=== PATIENT | male | born 1970 | race Hispanic/Latino ===

== ENCOUNTER 2017-06-17 00:41 | Inpatient (IN) | payer SELFPAY ==
[2017-06-17] VITALS (8 sets, daily range): BP systolic 142–193; BP diastolic 87–125
[~2017-06-17] VITALS: Ht 165.1 cm; Wt 112.0 kg
[~2017-06-17 00:41] MED LIST: AMLO5TAB4 PO; GLIP5TAB11 PO; LISI40TA4 PO; METF10004 PO
[2017-06-17 01:09] LABS: APPEARANCE,URINE Clear (CLEAR); BILIRUBIN,URINE Negative (NEGATIVE); COLOR,URINE Yellow (YELLOW); GLUCOSE, URINE (UA) Negative (NEGATIVE); KETONES,URINE Negative (NEGATIVE); LEUKOCYTE ESTERASE ,URINE Negative (NEGATIVE); NITRATE,URINE Negative (NEGATIVE); OCCULT BLOOD,URINE Negative (NEGATIVE); PROTEIN,URINE Negative (NEGATIVE); UROBILINOGEN,URINE 0.2 mg/dL (0.2-1.0)
[2017-06-17] MEDS ORDERED: METOPROLOL TARTRATE 1 MG/ML 5ML VIAL IV ONE (01:11)
[2017-06-17 01:17] LABS: BASOPHILS % (AUTO) 0.8 % (0.0-5.0); EOSINOPHILS % (AUTO) 2.2 % (0.0-8.0); HEMATOCRIT 39.2 % (42-54); LYMPHOCYTES % (AUTO) 37.1 % (21.0-51.0); MEAN CORPUSCULAR HEMOGLOBIN 30.7 pg (27.0-33.0); MEAN CORPUSCULAR HGB CONC 35.6 g/dL (32.0-36.0); MEAN CORPUSCULAR VOLUME 86.4 fL (79-99); MONOCYTES % (AUTO) 6.9 % (3.0-13.0); PLATELET COUNT (AUTO) 201 K/uL (130-400); RED BLOOD CELL COUNT(AUTO) 4.53 MIL/uL (4.50-6.20); RED CELL DISTRIBUTION WIDTH 13.7 % (11.0-15.5); WHITE BLOOD COUNT (AUTO) 5.5 K/uL (4.8-10.8)
[2017-06-17 01:18] LABS: AMPHET/METH SCREEN,URINE NEGATIVE (NEGATIVE); BARBITURATE SCREEN, URINE NEGATIVE (NEGATIVE); BENZODIAZEPINES SCREEN,URINE NEGATIVE (NEGATIVE); CANNABINOID SCREEN,URINE NEGATIVE (NEGATIVE); COCAINE SCREEN,URINE NEGATIVE (NEGATIVE); OPIATE SCREEN,URINE NEGATIVE (NEGATIVE); PHENCYCLIDINE SCREEN,URINE NEGATIVE (NEGATIVE)
[2017-06-17 01:32] LABS: INR 0.98 (0.85-1.15); PARTIAL THROMBOPLASTIN TIME 27.3 SEC (26.3-35.5); PROTHROMBIN TIME 10.3 SEC (9.6-11.6)
[2017-06-17 01:54] LABS: CREATININE 1.2 mg/dL (0.5-1.5); POTASSIUM 4.3 mmol/L (3.5-5.1)
[2017-06-17 02:07] LABS: ALBUMIN 3.7 g/dL (3.5-5.0); BILIRUBIN,TOTAL 0.4 mg/dL (0.2-1.0); CREATINE KINASE MB 1.4 ng/mL (0.5-3.6)
[2017-06-17] MEDS ORDERED: THIAMINE HCL 100 MG/ML 2ML VIAL ONE (02:25)
[2017-06-17] MEDS ORDERED: SODIUM CHLORIDE 0.9% 1000ML 1,000 ML IV ONE (02:25)
[2017-06-17] MEDS ORDERED: KETOROLAC TROMETHAMINE 30MG/ML ONE (02:25)
[2017-06-17] MEDS ORDERED: FOLIC ACID 5 MG/ML 10 ML VIAL ONE (02:27)
[2017-06-17] MEDS ORDERED: ONDANSETRON HCL MDV 20ML 2 MG/ML VIAL ONE (02:55)
[2017-06-17] MEDS ORDERED: HYDRALAZINE HCL 20 MG/ML VIAL ONE (02:56)
[2017-06-17] MEDS ORDERED: MORPHINE SULFATE 4 MG/1ML SYG ONE (02:57)
[2017-06-17] MEDS ORDERED: DEXTROSE 50%-WATER 50 ML DISP.SYRIN IV PRN (04:45)
[2017-06-17] MEDS ORDERED: GLUCAGON 1MG KIT 1 MG ML IM PRN (04:45)
[2017-06-17] MEDS ORDERED: METOPROLOL TARTRATE 1 MG/ML 5ML VIAL IV PRN (04:45)
[2017-06-17] MEDS ORDERED: MORPHINE SULFATE 2 MG/ML 1ML SYG IVP PRN (04:45)
[2017-06-17] MEDS: INSULIN R PO SS1 SQ SCH ×3 (06:13→16:30)
[2017-06-17 06:47] LABS: HEMATOCRIT 36.9 % (42-54); MEAN CORPUSCULAR HEMOGLOBIN 30.6 pg (27.0-33.0); MEAN CORPUSCULAR HGB CONC 35.7 g/dL (32.0-36.0); MEAN CORPUSCULAR VOLUME 85.8 fL (79-99); PLATELET COUNT (AUTO) 192 K/uL (130-400); WHITE BLOOD COUNT (AUTO) 7.4 K/uL (4.8-10.8)
[2017-06-17 07:05] LABS: CREATININE 1.2 mg/dL (0.5-1.5); POTASSIUM 4.6 mmol/L (3.5-5.1)
[2017-06-17] MEDS: HYDRALAZINE HCL 20 MG/ML VIAL IV PRN ×3 (07:50→21:58)
[2017-06-17] MEDS: MORPHINE SULFATE 4 MG/1ML SYG IVP PRN ×2 (07:50→12:27)
[2017-06-17] MEDS: BANANA BAG IV SCH ×4 (07:52)
[2017-06-17] MEDS: MORPHINE SULFATE 4 MG/1ML SYG IV PRN (18:54)
[2017-06-17] MEDS ORDERED: CLONIDINE 0.2 MG/ 24 HR PATCH TD ONE (19:00)
[2017-06-17] MEDS: 1/2 NORMAL SALINE 1,000 ML IV SCH (21:08)
[2017-06-17] MEDS ORDERED: LISINOPRIL 20 MG TABLET ONE (21:13)
[2017-06-17] MEDS ORDERED: LORAZEPAM 2 MG/ML 1 ML VIAL IVP PRN (22:15)
[2017-06-17] MEDS ORDERED: CHLORDIAZEPOXIDE HCL 25 MG CAP PO ONE (22:15)
[2017-06-17] MEDS ORDERED: CHLORDIAZEPOXIDE HCL 25 MG CAP ONE (22:20)
[2017-06-17] MEDS ORDERED: LORAZEPAM 2 MG/ML 1 ML VIAL ONE (22:20)
[2017-06-18] MEDS: MORPHINE SULFATE 4 MG/1ML SYG IV PRN ×2 (02:32→10:57)
[2017-06-18] MEDS: INSULIN HUMULIN R 100 UNIT/ML 3ML SQ SCH ×4 (05:56→16:46)
[2017-06-18 08:00] VITALS: BP 172/105
[2017-06-18] MEDS: CHLORDIAZEPOXIDE HCL 25 MG CAP PO SCH ×2 (08:13→21:02)
[2017-06-18] MEDS: LISINOPRIL 20 MG TABLET PO SCH (08:14)
[2017-06-18] MEDS: ONDANSETRON HCL MDV 20ML 2 MG/ML VIAL IVP PRN (11:26)
[2017-06-18] MEDS: HYDRALAZINE HCL 20 MG/ML VIAL IV PRN (11:28)
[2017-06-18 12:00] VITALS: BP 158/104
[2017-06-18 16:00] VITALS: BP 161/81
[2017-06-18] MEDS: BANANA BAG IV SCH ×4 (17:12)
[2017-06-18 19:00] VITALS: BP 150/82
[2017-06-19] VITALS: BP 149/92
[2017-06-19] MEDS: ONDANSETRON HCL MDV 20ML 2 MG/ML VIAL IVP PRN ×2 (00:04→13:31)
[2017-06-19] MEDS: 1/2 NORMAL SALINE 1,000 ML IV SCH ×2 (00:05→22:12)
[2017-06-19] MEDS: MORPHINE SULFATE 4 MG/1ML SYG IV PRN ×2 (01:47→13:31)
[2017-06-19 04:00] VITALS: BP 141/99
[2017-06-19] MEDS: INSULIN HUMULIN R 100 UNIT/ML 3ML SQ SCH ×2 (06:27→21:00)
[2017-06-19 08:00] VITALS: BP 143/98
[2017-06-19] MEDS: LISINOPRIL 20 MG TABLET PO SCH (08:54)
[2017-06-19] MEDS: CHLORDIAZEPOXIDE HCL 25 MG CAP PO SCH (08:54)
[2017-06-19] MEDS: ENOXAPARIN SODIUM 30 MG/0.3 ML SQ SCH (08:58)
[2017-06-19] MEDS ORDERED: OMEP40CA37 PO (09:01)
[2017-06-19 12:00] VITALS: BP 133/90
[2017-06-19 16:00] VITALS: BP 140/95
[2017-06-19 19:48] VITALS: BP 151/92
[2017-06-19] MEDS: FAMOTIDINE/PF 20 MG/2 ML VIAL IV SCH (21:32)
[2017-06-20] VITALS: BP 140/85
[2017-06-20] MEDS ORDERED: BISACODYL 10 MG SUPP.RECT RC ONE (00:36)
[2017-06-20] MEDS: ONDANSETRON HCL MDV 20ML 2 MG/ML VIAL IVP PRN ×3 (00:38→23:11)
[2017-06-20] MEDS: MORPHINE SULFATE 4 MG/1ML SYG IV PRN ×2 (01:44→13:29)
[2017-06-20 04:00] VITALS: BP 132/86
[2017-06-20] MEDS: INSULIN HUMULIN R 100 UNIT/ML 3ML SQ SCH ×3 (07:30→16:09)
[2017-06-20 09:13] VITALS: BP 139/91
[2017-06-20] MEDS: FAMOTIDINE/PF 20 MG/2 ML VIAL IV SCH ×2 (10:19→20:38)
[2017-06-20] MEDS: ENOXAPARIN SODIUM 30 MG/0.3 ML SQ SCH (10:20)
[2017-06-20] MEDS: LISINOPRIL 20 MG TABLET PO SCH (10:20)
[2017-06-20 11:47] VITALS: BP 149/97
[2017-06-20] MEDS ORDERED: DIATR MEGLU/DIATRIZOATE SODIUM 30 ML BOTTLE ONE (13:53)
[2017-06-20 15:35] VITALS: BP 138/96
[2017-06-20] MEDS: 1/2 NORMAL SALINE 1,000 ML IV SCH ×2 (17:17→21:18)
[2017-06-20 19:00] VITALS: BP 147/76
[2017-06-20] MEDS ORDERED: INSULIN HUMULIN R 100 UNIT/ML 3ML SQ SCH (22:30)
[2017-06-21] VITALS (8 sets, daily range): BP systolic 120–174; BP diastolic 80–109
[2017-06-21] MEDS: 1/2 NORMAL SALINE 1,000 ML IV SCH ×3 (05:32→20:42)
[2017-06-21] MEDS: INSULIN HUMULIN R 100 UNIT/ML 3ML SQ SCH ×4 (05:37→23:26)
[2017-06-21 06:33] LABS: HEMATOCRIT 35.3 % (42-54); MEAN CORPUSCULAR HEMOGLOBIN 30.1 pg (27.0-33.0); MEAN CORPUSCULAR HGB CONC 34.7 g/dL (32.0-36.0); MEAN CORPUSCULAR VOLUME 86.7 fL (79-99); PLATELET COUNT (AUTO) 200 K/uL (130-400); RED BLOOD CELL COUNT(AUTO) 4.08 MIL/uL (4.50-6.20); RED CELL DISTRIBUTION WIDTH 13.5 % (11.0-15.5); WHITE BLOOD COUNT (AUTO) 5.3 K/uL (4.8-10.8)
[2017-06-21 06:53] LABS: BILIRUBIN,TOTAL 5.8 mg/dL (0.2-1.0); CREATININE 0.9 mg/dL (0.5-1.5); POTASSIUM 3.9 mmol/L (3.5-5.1); TOTAL PROTEIN, SERUM 7.2 g/dL (6.0-8.3)
[2017-06-21 08:22] LABS: EOSINOPHILS % (MANUAL) 1 % (1-6); LYMPHOCYTES % (MANUAL) 14 % (22-44); MAN.DIFF COMMENT-IMPRESSION MANUAL DIFFERENTIAL; MONOCYTES % (MANUAL) 10 % (2-9); PLATELET MORPHOLOGY COMMENT ADEQUATE; SEGMENTED NEUTROPHILS % 75 % (40-70)
[2017-06-21] MEDS: FAMOTIDINE/PF 20 MG/2 ML VIAL IV SCH ×2 (09:50→19:54)
[2017-06-21] MEDS: LISINOPRIL 20 MG TABLET PO SCH (09:50)
[2017-06-21] MEDS: ENOXAPARIN SODIUM 30 MG/0.3 ML SQ SCH (09:51)
[2017-06-21] MEDS: ZOSYN 3.375GM+NS 50ML 50 ML IV SCH ×2 (12:44→19:54)
[2017-06-21] MEDS: HYDRALAZINE HCL 20 MG/ML VIAL IV PRN (19:54)
[2017-06-22 03:00] VITALS: BP 141/97
[2017-06-22] MEDS: ZOSYN 3.375GM+NS 50ML 50 ML IV SCH ×3 (04:49→20:39)
[2017-06-22] MEDS: 1/2 NORMAL SALINE 1,000 ML IV SCH ×3 (04:49→20:39)
[2017-06-22 05:17] LABS: BILIRUBIN,TOTAL 2.1 mg/dL (0.2-1.0); CREATININE 0.9 mg/dL (0.5-1.5); POTASSIUM 3.4 mmol/L (3.5-5.1); TOTAL PROTEIN, SERUM 7.1 g/dL (6.0-8.3)
[2017-06-22] MEDS: INSULIN HUMULIN R 100 UNIT/ML 3ML SQ SCH ×3 (05:38→18:00)
[2017-06-22 08:00] VITALS: BP 144/97
[2017-06-22] MEDS: ENOXAPARIN SODIUM 30 MG/0.3 ML SQ SCH (10:04)
[2017-06-22] MEDS: FAMOTIDINE/PF 20 MG/2 ML VIAL IV SCH ×2 (10:05→20:39)
[2017-06-22] MEDS: LISINOPRIL 20 MG TABLET PO SCH (10:05)
[2017-06-22] MEDS: HYDRALAZINE HCL 20 MG/ML VIAL IV PRN (10:10)
[2017-06-22] MEDS: MORPHINE SULFATE 4 MG/1ML SYG IV PRN (10:10)
[2017-06-22 12:00] VITALS: BP 159/102
[2017-06-22 16:00] VITALS: BP 144/90
[2017-06-22 19:00] VITALS: BP 158/98
[2017-06-22 23:00] VITALS: BP 138/94
[2017-06-23] VITALS (24 sets, daily range): BP systolic 113–165; BP diastolic 58–105
[2017-06-23] MEDS: ZOSYN 3.375GM+NS 50ML 50 ML IV SCH ×4 (04:35→21:44)
[2017-06-23] MEDS: 1/2 NORMAL SALINE 1,000 ML IV SCH ×3 (04:36→18:52)
[2017-06-23 04:46] LABS: HEMATOCRIT 33.9 % (42-54); MEAN CORPUSCULAR HEMOGLOBIN 30.3 pg (27.0-33.0); MEAN CORPUSCULAR VOLUME 86.5 fL (79-99); NUCLEATED RED BLOOD CELLS 0.1 % (0.0-0.19); PLATELET COUNT (AUTO) 212 K/uL (130-400); RED BLOOD CELL COUNT(AUTO) 3.92 MIL/uL (4.50-6.20); RED CELL DISTRIBUTION WIDTH 13.6 % (11.0-15.5)
[2017-06-23 05:01] LABS: ALBUMIN 3.1 g/dL (3.5-5.0); BILIRUBIN,TOTAL 1.3 mg/dL (0.2-1.0); MAGNESIUM 1.9 mg/dL (1.80-2.40); POTASSIUM 3.7 mmol/L (3.5-5.1); TOTAL PROTEIN, SERUM 6.9 g/dL (6.0-8.3)
[2017-06-23] MEDS: INSULIN HUMULIN R 100 UNIT/ML 3ML SQ SCH ×5 (05:49→21:37)
[2017-06-23] MEDS: FAMOTIDINE/PF 20 MG/2 ML VIAL IV SCH ×2 (08:15→21:44)
[2017-06-23] MEDS: LISINOPRIL 20 MG TABLET PO SCH (09:00)
[2017-06-23] MEDS: ENOXAPARIN SODIUM 30 MG/0.3 ML SQ SCH (09:00)
[2017-06-23] MEDS: HYDRALAZINE HCL 20 MG/ML VIAL IV PRN (11:47)
[2017-06-23] MEDS ORDERED: SODIUM CHLORIDE 0.9% 1000ML 1,000 ML IV ONE (11:50)
[2017-06-23] MEDS ORDERED: FENTANYL CITRATE PF 50 MCG/1 ML 2ML VIAL ONE ×2 (12:04→12:55)
[2017-06-23] MEDS ORDERED: LIDOCAINE PF 2% 5ML ABBOJECT ONE (12:04)
[2017-06-23] MEDS ORDERED: NEOSTIGMINE 5MG/5ML SYR IV ONE (12:04)
[2017-06-23] MEDS ORDERED: PROPOFOL 10 MG/ML 20ML VIAL IV ONE (12:04)
[2017-06-23] MEDS ORDERED: DEXAMETHASONE SOD PHOSPHATE 10MG/ML 1ML VIAL ONE (12:04)
[2017-06-23] MEDS ORDERED: GLYCOPYRROLATE 0.2 MG/ML 5 ML VIAL ONE (12:04)
[2017-06-23] MEDS ORDERED: MIDAZOLAM HCL 1 MG/ML 2ML VIAL ONE (12:04)
[2017-06-23] MEDS ORDERED: ROCURONIUM BROMIDE 10MG/1ML 5ML VL ONE (12:07)
[2017-06-23] MEDS ORDERED: BUPIVACAINE/PF 0.5% 10ML VIAL ONE (12:22)
[2017-06-23] MEDS ORDERED: EPHEDRINE SULFATE 50 MG/ML AMPULE ONE (12:46)
[2017-06-23] MEDS ORDERED: FENTANYL CITRATE PF 50 MCG/1 ML 5ML AMP IV ONE (13:22)
[2017-06-23] MEDS: LACTATED RINGERS 1000ML 1,000 ML IV SCH (13:54)
[2017-06-23] MEDS ORDERED: ONDANSETRON HCL MDV 20ML 2 MG/ML VIAL IVP PRN (14:00)
[2017-06-23] MEDS ORDERED: MORPHINE SULFATE 4 MG/1ML SYG IV PRN (14:00)
[2017-06-23] MEDS ORDERED: LABETALOL HCL 5 MG/ML 20ML VIAL IV ONE (14:21)
[2017-06-23] MEDS: MORPHINE SULFATE 4 MG/1ML SYG IV PRN (15:44)
[2017-06-24 03:00] VITALS: BP 143/93
[2017-06-24 04:44] LABS: BASOPHILS % (AUTO) 0.3 % (0.0-5.0); HEMATOCRIT 32.3 % (42-54); LYMPHOCYTES % (AUTO) 7.9 % (21.0-51.0); MEAN CORPUSCULAR HEMOGLOBIN 31.5 pg (27.0-33.0); MEAN CORPUSCULAR HGB CONC 36.1 g/dL (32.0-36.0); MEAN CORPUSCULAR VOLUME 87.2 fL (79-99); MONOCYTES % (AUTO) 6.8 % (3.0-13.0); PLATELET COUNT (AUTO) 239 K/uL (130-400); RED CELL DISTRIBUTION WIDTH 13.3 % (11.0-15.5); WHITE BLOOD COUNT (AUTO) 8.3 K/uL (4.8-10.8)
[2017-06-24] MEDS: ZOSYN 3.375GM+NS 50ML 50 ML IV SCH ×2 (04:46→13:09)
[2017-06-24] MEDS: LACTATED RINGERS 1000ML 1,000 ML IV SCH ×2 (04:46→16:34)
[2017-06-24] MEDS: 1/2 NORMAL SALINE 1,000 ML IV SCH ×2 (04:46→11:35)
[2017-06-24 05:03] LABS: ALBUMIN 3.1 g/dL (3.5-5.0); BILIRUBIN,TOTAL 0.8 mg/dL (0.2-1.0); CREATININE 0.9 mg/dL (0.5-1.5); POTASSIUM 4.1 mmol/L (3.5-5.1); TOTAL PROTEIN, SERUM 6.9 g/dL (6.0-8.3)
[2017-06-24] MEDS: INSULIN HUMULIN R 100 UNIT/ML 3ML SQ SCH ×3 (06:33→16:30)
[2017-06-24 08:00] VITALS: BP 137/91
[2017-06-24] MEDS: FAMOTIDINE/PF 20 MG/2 ML VIAL IV SCH (09:14)
[2017-06-24] MEDS: LISINOPRIL 20 MG TABLET PO SCH (09:15)
[2017-06-24] MEDS: ENOXAPARIN SODIUM 30 MG/0.3 ML SQ SCH (09:16)
[2017-06-24 11:00] VITALS: BP 157/95
[2017-06-24 16:00] VITALS: BP 154/95
== END 2017-06-24 17:30 | disposition home or self-care (01) | DRG 417 ==
LOC: EDH 00:41 → OBSVTOIN 00:42 → EDHIP 00:42 → 3AH 03:31
PROVIDERS: ADMIT Internal Medicine Nephrology; ATTEND Internal Medicine Nephrology
PROC: 0FT44ZZ Resection of Gallbladder, Percutaneous Endoscopic Approach (ICD-10-PCS; principal; 2017-06-23 12:42)
DX: K80.50 Calculus of bile duct without cholangitis or cholecystitis without obstruction (principal); K85.10 Biliary acute pancreatitis without necrosis or infection; K66.8 Other specified disorders of peritoneum; E66.01 Morbid (severe) obesity due to excess calories; Z68.41 Body mass index [BMI] 40.0-44.9, adult; E11.65 Type 2 diabetes mellitus with hyperglycemia; F10.10 Alcohol abuse, uncomplicated; K57.90 Diverticulosis of intestine, part unspecified, without perforation or abscess without bleeding; F17.210 Nicotine dependence, cigarettes, uncomplicated; I10 Essential (primary) hypertension; E66.9 Obesity, unspecified; Z82.49 Family history of ischemic heart disease and other diseases of the circulatory system; Z83.3 Family history of diabetes mellitus; Z79.899 Other long term (current) drug therapy
CPT/HCPCS: 36415; 71045; 74176; 76705; 80048; 80053; 80305; 81003; 82150; 82550; 82553; 82948; 83690; 83735; 84484; 85025; 85027; 85610; 85730; 93005; G0480; J0360; J1100; J1650; J1815; J1885; J2001; J2060; J2250; J2270; J2543; J2704; J2710; J3010; J3411; J3490; J7030; J7120; Q9963